=== PATIENT | female | born 1980 | race Caucasian/White ===

== ENCOUNTER 2024-01-01 17:29 | Emergency (ER) | payer OTHER, SELFPAY ==
[2024-01-01 17:34] VITALS: BP 141/68
[2024-01-01 17:48] LABS: Urine Albumin Negative (Neg - Trace); Urine Bilirubin Negative (Negative); Urine Character Clear (Clear); Urine Color Yellow; Urine Glucose Negative (Negative); Urine Ketone 3+ (Negative); Urine Leukocyte Negative (Negative); Urine Nitrite Negative (Negative); Urine Occult Blood Negative (Negative); Urine Urobilinogen Negative (Neg - 1+)
[2024-01-01 17:56] LABS: HCG, Urine Qualitative Screen Negative
--- NOTE | 2024-01-01 18:35 | ED.GENMED ---
History of Present Illness
General
Chief Complaint: Flank Pain
Source: patient
Exam Limitations: none
Time Seen by Provider: 01/01/24 17:59
Travel History
Have you had any contact with someone who has COVID-19?: No
Do you have any symptoms of coronavirus? Fever > 100 degrees, chills, cough, shortness of breath, sore throat, loss of taste or smell, muscle aches, or headache?: No
History of Present Illness
History of Present Illness:
This is a 43 year old female that comes in with c/o right flank and back pain. States that this pain started on Sunday. States that she hasn't been eating to see if the pain would go away. States that yesterday she felt like there was a 'lot of
bubbling' in the right sided and mid back. States that she has had some SOB, headache and felt dizzy and nauseated. Denies any fever, chills, chest pain, abd pain, vomiting, diarrhea, urinary burning.
Past History
Past History
ED Past Medical History: Psychiatric (Anxiety, Depression) and Other (IBS, )
ED Past Surgical History: Other (Lipomas removed)
Social History
Tobacco: Smoker
Alcohol: Occasional
Drug: Marijuana
Personal:
Living: with family
Review of Systems
Review of Systems
All Other Systems: ROS reviewed and negative except as documented in HPI and ROS
Constitutional: Reports no symptoms; Denies fever or chills
EENT: Reports no symptoms
Respiratory: Reports trouble breathing; Denies cough
Cardiac: Reports no symptoms; Denies chest pain
ABD/GI: Reports nausea; Denies abdominal pain, vomiting or diarrhea
: Reports no symptoms; Denies dysuria, frequency or urgency
Musculoskeletal: Reports back pain (Right mid back to flank)
Skin: Reports no symptoms
Neurological: Reports dizzy and headache
Psychiatric: Reports no symptoms
Phy Exam
General Physical Exam
General Presentation: well appearing and no apparent distress
General age: appears stated age
General Skin: warm and dry
General Habitus: normal
General Mental: alert
General Hydration: appears well hydrated
ENT Exam
ENT Exam: TM's normal, pharynx normal and neck supple
Eye Exam
Eye Exam: EOMI
Cardiovascular Exam
Cardiovascular Exam: regular rate/rhythm, no edema, no murmur and normal peripheral pulses
Pulmonary Exam
Pulmonary Exam: lungs clear, no respiratory distress, no rales, chest non tender, no crackles, no rhonchi, no wheezing and no cough
Gastrointestinal Exam
Gastrointestinal Exam: normal bowel sounds, soft, no organomegaly, no pulsatile mass, non distended and tender (Slight right sided tenderness with palpation)
Musculoskeletal Exam
Musculoskeletal Exam: full ROM and no edema
Skin Exam
Skin Exam: normal color, warm/dry, no rash and no petechia
Psychiatric Exam
Psychiatric Exam: normal mood/affect
Course
Orders/Labs/Results
Orders:
Orders
01/01/24 17:38
Test Result ONCE
01/01/24 17:42
HCG, Urine Qualitative Screen Urgent
Date Specimen was Collected: 01/01/24
Time Specimen was Collected: 17:38
Urinalysis Reflex To Culture Urgent
Date Specimen was Collected: 01/01/24
Time Specimen was Collected: 17:38
01/01/24 18:34
US Abdomen Complete/Upper Urgent
Comment:
Reason For Exam: Right upper abd pain
01/01/24 18:37
CR Chest - 2 Views Urgent
Comment:
Reason For Exam: SOB
01/01/24 18:42
Complete Blood Count/With Diff Urgent
Comprehensive Metabolic Panel Urgent
D-Dimer Urgent
01/01/24 20:13
Ketorolac [Toradol] 30 mg IV NOW STA
Abnormal Lab Results
01/01/24 01/01/24
17:42 18:42
MCH 31.3 H pg
(27.0-31.0)
Absolute Neuts (auto) 7.8 H 10^3/uL
(1.4-6.5)
Neutrophils % 78.5 H %
(42.2-75.2)
Lymphocytes % 15.9 L %
(20.5-51.1)
Urine Ketones 3+ A
(Negative)
01/01/24 18:42
01/01/24 18:42
Urine negative for infection, HCG negative, D-dimer <0.27, Labs unremarkable.
Vital Signs
Initial and Last Documented VS:
Initial Vital Signs
Temp Pulse Resp BP Pulse Ox
98.4 F 104 16 141/68 100
01/01/24 17:34 01/01/24 17:34 01/01/24 17:34 01/01/24 17:34 01/01/24 17:34
Last Documented Vital Signs
Temp Pulse Resp BP Pulse Ox
98.4 F 104 16 141/68 100
01/01/24 17:34 01/01/24 17:34 01/01/24 17:34 01/01/24 17:34 01/01/24 17:34
MDM/Problems Addressed
Differential Diagnosis Includes:
Back pain, Gallbladder disease. UTi
MDM/Problems Addressed:
This is a 43 year old female that comes in with c/o right mid back pain and flank pain. States that this started on Sunday and her family has a history of kidney issues. States that she got nervous
Will check labs, Urine and get US.
Back into see patient. Explained that her blood work is normal along with her Ultrasound. This is most likely some back irritation. Will have patient use Ibuprofen 600mg every 6 hours for pain. Heat or ice to the back and follow up with the family
doctor. Patient to return with any concerns.
Chronic conditions affecting care: Psychiatric illness (Anxeity)
Acute Exacerbation and/or Progression of Chronic Illness:
NA
*Radiology
Radiology exam reviewed: radiology read reviewed (Unremarkable abd ultrasound)
*Pulse Oximetry
Patient hypoxic: no
*EKG
Interpreted by ED Provider?: NA
Rate: EKG- N/A
*Licensed Investment Sales Assistant Interpretation
Rate: Licensed Investment Sales Assistant- N/A
*Critical Care Note
Total Time (30-74mins, 75-104mins- exclusive of procedures): Not Applicable
ED Attending Note
-
Portions of this chart may have been created with voice recognition software.� Occasional wrong word or��sound alike� substitutions may have occurred due to the inherent limitations of voice recognition software.
Discharge Plan
Departure
Patient Disposition: Home (Routine Discharge)
Date of Disposition: 01/01/24
Time of Disposition: 20:15
Patient with high blood pressure during this ER visit?: Yes
Condition: Good
Covid-19: Not Applicable
Discharge Problem:
Back pain
Instructions: Back Pain, BLOOD PRESSURE
Activity Restrictions/Additional Instructions:
As discussed, your blood work is all normal along with your ultrasound. There is no gallbladder disease, kidney stones or any other acute process. This is most likely due to back discomfort. You may take Ibuprofen 600mg every 6 hours with food for
pain. You may use heat or ice to the back to help with pain. Follow up with the family doctor for recheck. IF YOU HAVE ANY OTHER CONCERNS PLEASE RETURN TO THE EMERGENCY ROOM.
Interventions
Interventions:
*Risk Screen - Suicide Last Done: 01/01/24 17:34
*General Assessment Last Done: 01/01/24 17:34
*Neglect/Abuse Screening Last Done: 01/01/24 17:34
*ED COVID-19 Vaccine History Last Done: 01/01/24 17:34
CO-Fnvbfu-Lgcinysnaf Assessment Last Done: 01/01/24 18:21
ED-Female Genitourinary Assessment Last Done: 01/01/24 18:21
[2024-01-01 19:05] LABS: % Basophils 0.5 % (0-2); % Eosinophils 0.5 % (0-6); % Immature Granulocytes 0.1 % (0-0.5); % Lymphocytes 15.9 % (20.5-51.1); % Monocytes 4.5 % (1.7-9.3); % Neutrophils 78.5 % (42.2-75.2); Absolute Basophils 0.1 10^3/uL (0-0.2); Absolute Eosinophils 0.1 10^3/uL (0-0.7); Absolute Lymphocytes 1.6 10^3/uL (1.2-3.4); Absolute Monocytes 0.5 10^3/uL (0.1-0.6); Absolute Neutrophils 7.8 10^3/uL (1.4-6.5); Hemoglobin 13.7 g/dL (12.0-16.0); Mean Corp Hgb Conc. 36.1 g/dL (33.0-37.0); Mean Corpuscular Hgb 31.3 pg (27.0-31.0); Mean Corpuscular Volume 86.8 fL (81.0-99.0); Nucleated Red Blood Cells % 0 %; Platelet Count 341 10^3/uL (130-400); Red Blood Cell Count 4.38 10^6/uL (4.20-5.40); Red Cell Dist. Width 12.2 % (11.5-14.5); White Blood Cell Count 9.9 10^3/uL (4.8-10.8)
[2024-01-01 19:15] LABS: D-Dimer < 0.27 ug/mlFEU (0.00-0.50)
[2024-01-01 19:34] LABS: ALT (SGPT) 18 U/L (0-35); AST (SGOT) 24 U/L (14-36); Albumin 4.6 g/dl (3.5-5.0); Alkaline Phosphatase 58 U/L (38-126); Blood Urea Nitrogen 9 mg/dl (7-17); Calcium 9.7 mg/dl (8.4-10.2); Carbon Dioxide 27 mmol/L (22-30); Chloride 101 mmol/L (98-107); Glucose 78 mg/dl (70-99); Potassium 3.8 mmol/L (3.5-5.1); Sodium 136 mmol/L (135-145); Total Bilirubin 0.6 mg/dl (0.2-1.3); Total Protein 7.1 g/dl (6.3-8.2); eGFR > 60.00
[2024-01-01] MEDS: TORADOL 30 MG IV (20:27)
== END 2024-01-01 20:45 | disposition home or self-care (01) ==
LOC: EMR 17:29
PROVIDERS: Clinical Nurse Specialist Family Health; Emergency Medicine; EMERGENCY PHYSICIAN Emergency Medicine; FAMILY PHYSICIAN Physician Assistant Medical
DX: M54.9 Dorsalgia, unspecified (principal); F41.8 Other specified anxiety disorders; K58.9 Irritable bowel syndrome, unspecified; F17.200 Nicotine dependence, unspecified, uncomplicated
CPT/HCPCS: 99284; 96374; 76700; 80053; 81003; 81025; 85025; 85379